=== PATIENT | male | born 1965 | race Caucasian/White ===

== ENCOUNTER 2018-12-21 15:19 | Emergency (ER) | payer OTHER ==
--- NOTE | 2018-12-21 15:23 | PDOC ---
History of Present Illness <Sudha Burton - Last Filed: 12/21/18 17:29> - General History Source: Patient Exam Limitations: No Limitations - History of Present Illness Initial Comments: 12/21/18 15:33 53 year old male with PMH HTN, glaucoma presented to ED for chest pain x3 days, worsening today. Pt stated On Wednesday he was moving a large mattress, and on Wednesday he began to have bilateral chest pain, worst substernally, with no aggravating or alleviating factors, intermittent. Pt stated he took two 325 mg ASA Wednesday through Wednesday, but today did not take any medication. He stated his pain went from being intermittent to constant this morning. Pt denied shortness of breath, lower extremity swelling, cough, fever, chills, recent illness, abdominal pain, nausea, vomiting, weakness. Allergies: NKDA <Rebecca Nails - Last Filed: 12/21/18 18:35> - General Chief Complaint: Chest Pain Stated Complaint: CHEST PRESSURE FOR 3 DAYS Past History <Sudha Burton Etta - Last Filed: 12/21/18 17:29> <Rebecca Nails - Last Filed: 12/21/18 18:35> - Past Medical History Allergies/Adverse Reactions: Allergies Allergy/AdvReac Type Severity Reaction Status Date / Time No Known Allergies Allergy Unverified 12/21/18 15:21 Home Medications: Ambulatory Orders Losartan 50Mg/Hctz 12.5MG [Hyzaar -] 1 tab PO DAILY 12/21/18 Review of Systems - Review of Systems Able to Perform ROS?: Yes Comments:: 12/21/18 15:36 General: denied fever, chills, generalized weakness. HEENT: denied sore throat, rhinorrhea, ear pain. Heart: admitted to chest pain. denied palpitations, syncope, diaphoresis. Respiratory: denied shortness of breath, cough, sputum production, hemoptysis. Abdomen: denied abdominal pain, nausea, vomiting, diarrhea, constipation, blood in stool. : denied dysuria, increased urinary frequency, hematuria, urinary incontinence , flank pain. Back: denied back pain. Musculoskeletal: denied joint pain, muscle pain, joint swelling. Neurological: denied headache, dizziness, numbness, tingling, weakness. Skin: denied rash, laceration, abrasion. <Hannah Nailsyla - Last Filed: 12/21/18 18:35> *Physical Exam - Vital Signs Last Vital Signs Temp Pulse Resp BP Pulse Ox 98.1 F 68 16 127/81 97 12/21/18 15:21 12/21/18 15:21 12/21/18 15:21 12/21/18 15:21 12/21/18 15:21 <Sudha Burton - Last Filed: 12/21/18 17:29> - Physical Exam Comments: 12/21/18 15:37 Constitutional: Well-nourished, Well-developed, appearing stated age. HEENT: head is normocephalic, atraumatic. EOMI. PERRLA. Neck: supple. Full ROM. Heart: regular rhythm. no murmurs, rubs or gallops. Chest: no bruising. no chest wall tenderness. Lungs: clear to auscultation bilaterally. no crackles, rhonchi or wheezing. no stridor. Abdomen: soft, nontender. normal bowel sounds. no rebound, guarding, masses. Extremities: peripheral pulses intact. no lower extremity edema. Neurological: CN 2-12 grossly intact. moves all four extremities. Psych: awake, alert, oriented x3. follows commands. answers questions appropriately. <Rebecca Nails - Last Filed: 12/21/18 18:35> ED Treatment Course - LABORATORY CBC & Chemistry Diagram: 12/21/18 16:02 12/21/18 16:02 - ADDITIONAL ORDERS Additional order review: Laboratory Results 12/21/18 12/21/18 16:02 16:02 Sodium 134 L Potassium 3.5 Chloride 100 Carbon Dioxide 27 Anion Gap 7 L BUN 17 Creatinine 0.7 Creat Clearance w eGFR 118.43 Random Glucose 81 Calcium 9.4 Magnesium 1.9 Total Bilirubin 1.0 AST 27 ALT 32 Alkaline Phosphatase 36 L Troponin I 0.03 Total Protein 7.1 Albumin 4.3 12/21/18 16:02 RBC 4.87 MCV 90.9 MCHC 33.7 RDW 13.0 MPV 7.8 Neutrophils % 65.7 Lymphocytes % 23.7 Monocytes % 8.3 Eosinophils % 1.6 Basophils % 0.7 - RADIOLOGY Radiology Studies Ordered: Category Date Time Status CHEST PA & LAT [RAD] Stat Radiology 12/21/18 15:26 Taken - Medications Given in the ED: ED Medications Discontinued Medications Generic Name Dose Route Start Last Admin Trade Name Chandler PRN Reason Stop Dose Admin Acetaminophen 975 mg 12/21/18 15:36 12/21/18 16:00 Tylenol - PO 12/21/18 15:37 975 mg ONCE ONE Administration Aspirin 324 mg 12/21/18 15:36 12/21/18 16:01 Asa - PO 12/21/18 15:37 Not Given ONCE ONE Ibuprofen 800 mg 12/21/18 15:40 12/21/18 16:01 Motrin - PO 12/21/18 15:41 800 mg ONCE ONE Administration <Sudha Burtonrebekah - Last Filed: 12/21/18 17:29> - LABORATORY CBC & Chemistry Diagram: 12/21/18 16:02 12/21/18 16:02 <Rebecca Nails - Last Filed: 12/21/18 18:35> Medical Decision Making - Medical Decision Making 12/21/18 15:37 53 year old male with above PMH presented to ED for chest pain x3 days after recently moving a large mattress. Pt stated pain was relieved by ASA, and worsened today when he did not take any medication for his pain. Initial Vital Signs Temp Pulse Resp BP Pulse Ox 98.1 F 68 16 127/81 97 12/21/18 15:21 12/21/18 15:21 12/21/18 15:21 12/21/18 15:21 12/21/18 15:21 Afebrile. No tachycardia. No tachypnea. No hypertension or hypotension. No hypoxia on room air. Labs ordered: CBC, CMP, troponin, Magnesium Medications ordered: Tylenol 975 mg PO once, ibuprofen 800 mg once Imaging ordered: CXR EKG performed at 1526: rate 65, regular rhythm, normal axis, normal intervals, no acute ST changes. 12/21/18 17:43 CBC WBC 6.2 K/mm3 (4.0-10.8) 12/21/18 16:02 RBC 4.87 M/mm3 (4.00-5.60) 12/21/18 16:02 Hgb 14.9 GM/dl (11.7-16.9) 12/21/18 16:02 Hct 44.3 % (35.4-49) 12/21/18 16:02 MCV 90.9 fl (80-96) 12/21/18 16:02 MCH 30.6 pg (25.7-33.7) 12/21/18 16:02 MCHC 33.7 g/dl (32.0-35.9) 12/21/18 16:02 RDW 13.0 % (11.9-15.9) 12/21/18 16:02 Plt Count 210 K/MM3 (134-434) 12/21/18 16:02 MPV 7.8 fl (7.5-11.1) 12/21/18 16:02 Absolute Neuts (auto) 4.1 K/mm3 12/21/18 16:02 Neutrophils % 65.7 % (42.8-82.8) 12/21/18 16:02 Lymphocytes % 23.7 % (8-40) 12/21/18 16:02 Monocytes % 8.3 % (3.8-10.2) 12/21/18 16:02 Eosinophils % 1.6 % (0-4.5) 12/21/18 16:02 Basophils % 0.7 % (0-2.0) 12/21/18 16:02 No leukocytosis. No anemia. CMP Sodium 134 mmol/L (136-145) L 12/21/18 16:02 Potassium 3.5 mmol/L (3.5-5.1) 12/21/18 16:02 Chloride 100 mmol/L (98-107) 12/21/18 16:02 Carbon Dioxide 27 mmol/L (21-32) 12/21/18 16:02 Anion Gap 7 MMOL/L (8-16) L 12/21/18 16:02 BUN 17 mg/dl (7-18) 12/21/18 16:02 Creatinine 0.7 mg/dl (0.55-1.3) 12/21/18 16:02 Creat Clearance w eGFR 118.43 (>60) 12/21/18 16:02 Random Glucose 81 mg/dl (74-106) 12/21/18 16:02 Calcium 9.4 mg/dl (8.5-10) 12/21/18 16:02 Magnesium 1.9 mg/dL (1.8-2.4) 12/21/18 16:02 Total Bilirubin 1.0 mg/dl (0.2-1) 12/21/18 16:02 AST 27 U/L (15-37) 12/21/18 16:02 ALT 32 U/L (13-61) 12/21/18 16:02 Alkaline Phosphatase 36 U/L (45-117) L 12/21/18 16:02 Troponin I 0.03 ng/ml (0.00-0.05) 12/21/18 16:02 Total Protein 7.1 g/dl (6.4-8.2) 12/21/18 16:02 Albumin 4.3 g/dl (3.4-5.0) 12/21/18 16:02 No clinically significant electrolyte abnormalities. No MORENO. No transaminitis. Normal troponin. Pt discharged with instruction to follow up with PCP and Segment Producer. <Rebecca Nails - Last Filed: 12/21/18 18:35> *DC/Admit/Observation/Transfer - Discharge Dispostion Decision to Admit order: No <Sudha Burton - Last Filed: 12/21/18 17:29> <Rebecca Nails - Last Filed: 12/21/18 18:35> Diagnosis at time of Disposition: Chest pain - Discharge Dispostion Disposition: HOME Condition at time of disposition: Stable - Referrals Referrals: Chan Licona MD [Primary Care Provider] - Parveen Amador MD [Staff Physician] - Danny Ackerman MD [Staff Physician] - Kojo Sommers MD [Staff Physician] - - Patient Instructions Printed Discharge Instructions: DI for Chest Pain Additional Instructions: 1) Please follow-up with your primary care doctor in the next 1-2 days. Please call tomorrow for for any urgent issues. you are to see a surgical asst, referrals given. 2) You were given a copy of the tests performed today. Please bring the results with you and review them with your primary care doctor. Your laboratory / imaging results were normal, including cardiac enzymes and your EKG 3) If you have any worsening of symptoms or any other concerns please return to the ED immediately. Return if worsening symptoms including fevers, headache, vomiting, visual or hearing disturbances, abdominal pain, chest pain, shortness of breath, syncope, dehydration, inability to take things by mouth/vomiting, altered mental status, or worsening concerning symptoms. 4) Please continue taking your home medications as directed. your medications on discharge include tylenol and motrin as needed for pain; you can start a daily aspirin . side effects may include upset stomach, abdominal pain, vomiting , or diarrhea. do not drink alcohol with your medications. avoid excessive heavy lifting or strenous activity - Post Discharge Activity
--- NOTE | 2018-12-21 15:27 | PDOC ---
Attending Attestation - Resident Resident Name: JaquiRebecca - ED Attending Attestation I have performed the following: I have examined & evaluated the patient, The case was reviewed & discussed with the resident, I agree w/resident's findings & plan - HPI HPI: 12/21/18 17:30 53 year old male with PMH HTN, glaucoma presented to ED for chest pain x3 days, worsening today. admits to heavy lifting, of a mattress 3 days ago. c/o primarily right and left sided chest pain, described as "pressure," no sob or dizziness, kennedy, paresthesias, weakness or difficulty walking, cough or congestion, n/v/d, AP. prior smoker, no etoh use no sig fam history of sudden deaths, [place] or CAD. - Physicial Exam PE: 12/21/18 17:31 NAD, well appearing, PERRL, EOMI, MMM, nl conjunctiva, anicteric; neck supple. lungs clear, RRR, no murmurs, abdomen soft nontender. BAUMAN x4, no focal neuro deficits. No peripheral edema. normal color for ethnicity, WW. 12/21/18 17:31 - Medical Decision Making 12/21/18 15:38 See HPI for details Vital signs reviewed, wnl. DDx chest pain: ACS, coronary vasospasm, NSTEMI, arrhythmia, unstable angina, PE , dissection, PUD, esophageal spasm, GERD, gastritis, costochondritis, pneumonia , pleurisy, pericarditis/myocarditis. dehydration, electrolyte/metabolic derangements. Considered but clinically doubt based on HPI and PE: PE or dissection; no sob or tachy or hypoxia. no neuro changes or deficits. Prior notes reviewed, including admissions, discharges and consultations. laboratory results and imaging reviewed, basic labs and lytes wnl, CXR_no acute chest pathology, normal silhouette, no edema or effusion or consolidation. Cardiac panel_neg trop, x1, sufficient as 3 d of pain, minimal currently EKG normal sinus rhythm at 65 bpm, no interval abnormalities, narrow QRS, ST and T wave segments and morphology normal. ED course - heart score 2, low risk, <1.7% of mace at 4-6 wks. given analgesia, no active CP, VS here wnl. unlikely PE or dissection or ACS with clinical history and workup. cards followup provided, for further eval, echo and testing PCP followup, Dr Cortes Pt informed of my clinical impression, treatment recommendations and disposition plan. All questions answered to patient's satisfaction and expressed understanding and comfort with this. Reasons for returning to the ED sooner discussed including new or persistent/worsening symptoms with the patient otherwise, follow up with primary care physician. At the time of discharge, the patient is alert, clinically improved, tolerating po and verbalizes understanding of instructions, satisfied with the care received and felt comfortable with the plan. Patient does not suffer from an acute life- threatening medical condition at this time he is safe for outpatient follow-up. 12/21/18 15:39 12/21/18 17:27 12/21/18 17:28 12/21/18 17:30 Heart Score/ECG Review - History History: Slightly suspicious - Electrocardiogram EKG: Normal - Age Age: 45-65 - Risk Factors Risk Factors Heart Score: Yes Hx Hypertension Based on the list above the patient has:: 1-2 risk factors - Troponin Troponin: </= normal limit - Score Heart Score - Total: 2 #1 ECG reviewed & interpreted by me at: 15:25 General ECG Interpretation: Sinus Rhythm, Normal Rate, Normal Intervals, No acute ischemic changes 12/21/18 15:39 EKG normal sinus rhythm at 65 bpm, no interval abnormalities, narrow QRS, ST and T wave segments and morphology normal.
[2018-12-21 15:31] VITALS: TEMP 98.1; BMI 30.1
[2018-12-21] MEDS ORDERED: ASPIRIN 81 MG CHEWABLE TABLETS PO ONE (15:36)
[2018-12-21] MEDS ORDERED: ACETAMINOPHEN 325 MG TABLET (FP) PO ONE (15:36)
[2018-12-21] MEDS ORDERED: IBUPROFEN 400 MG TABLET (FP) PO ONE ×2 (15:40→15:53)
[2018-12-21] MEDS ORDERED: ACETAMINOPHEN 325 MG TABLET (FP) ONE (15:53)
[2018-12-21 16:21] LABS: BASO % 0.7 % (0-2.0); EOS % 1.6 % (0-4.5); HEMATOCRIT 44.3 % (35.4-49); HEMOGLOBIN 14.9 GM/dl (11.7-16.9); LYMPH % 23.7 % (8-40); MCH 30.6 pg (25.7-33.7); MCHC 33.7 g/dl (32.0-35.9); MEAN CELL VOLUME 90.9 fl (80-96); MEAN PLT VOLUME 7.8 fl (7.5-11.1); MONO % 8.3 % (3.8-10.2); NEUT % 65.7 % (42.8-82.8); PLATELET COUNT 210 K/MM3 (134-434); RBC 4.87 M/mm3 (4.00-5.60); WHITE BLOOD COUNT 6.2 K/mm3 (4.0-10.8)
[2018-12-21 16:31] LABS: ALBUMIN 4.3 g/dl (3.4-5.0); ALK PHOS 36 U/L (45-117); ANION GAP 7 MMOL/L (8-16); BLOOD UREA NITROGEN 17 mg/dl (7-18); CALCIUM 9.4 mg/dl (8.5-10); CHLORIDE 100 mmol/L (98-107); CO2 27 mmol/L (21-32); CREATININE 0.7 mg/dl (0.55-1.3); GLUCOSE,RANDOM 81 mg/dl (74-106); MAGNESIUM 1.9 mg/dL (1.8-2.4); POTASSIUM 3.5 mmol/L (3.5-5.1); SGOT/AST 27 U/L (15-37); SGPT/ALT 32 U/L (13-61); SODIUM 134 mmol/L (136-145); TOT PROT 7.1 g/dl (6.4-8.2)
[2018-12-21 17:39] VITALS: BP 119/84; PULSE 57
--- NOTE | 2018-12-22 16:38 | EKG ---
Test Reason : Blood Pressure : / mmHG Vent. Rate : 065 BPM Atrial Rate : 065 BPM P-R Int : 160 ms QRS Dur : 096 ms QT Int : 392 ms P-R-T Axes : 045 069 053 degrees QTc Int : 407 ms NORMAL SINUS RHYTHM NORMAL ECG NO PREVIOUS ECGS AVAILABLE Confirmed by DC FELIX MD ([id number]) on 12/22/2018 4:38:22 PM Referred By: MD RG Confirmed By:DC FELIX MD
== END 2018-12-21 17:39 | disposition home or self-care (01) ==
LOC: FER 15:19
DX: R07.9 Chest pain, unspecified (principal); I10 Essential (primary) hypertension; H40.9 Unspecified glaucoma
CPT/HCPCS: 36415; 71046-TC-FY; 80053; 83735; 84484; 85025; 93005; 99284-25